=== PATIENT | male | born 1965 | race Caucasian/White ===

== ENCOUNTER 2024-10-16 17:09 | Inpatient (IN) | payer BC, OTHER ==
[2024-10-16] MEDS: Ketorolac 30 MG/ML SDV IVPUSH ONE (18:01)
[2024-10-16 18:03] LABS: BASOPHILS ABSOLUTE AUTO 0.01 K/uL (0.00-0.20); BASOPHILS PERCENT AUTO 0.1 % (0.0-1.0); EOSINOPHILS ABSOLUTE AUTO 0.00 K/uL (0.00-0.45); EOSINOPHILS PERCENT AUTO 0.0 % (0.0-6.0); IMMATURE GRAN ABSOLUTE AUTO 0.08 K/uL (0.00-0.05); IMMATURE GRAN PERCENT AUTO 0.5 % (0.0-0.4); LYMPHOCYTES ABSOLUTE AUTO 0.84 K/uL (1.00-4.80); LYMPHOCYTES PERCENT AUTO 5.8 % (24.0-44.0); MEAN PLATELET VOLUME 9.5 fL (9.4-12.4); MONOCYTES ABSOLUTE AUTO 1.37 K/uL (0.00-0.80); MONOCYTES PERCENT AUTO 9.4 % (0.0-8.0); NEUTROPHILS ABSOLUTE AUTO 12.28 K/uL (1.80-7.70); NEUTROPHILS PERCENT AUTO 84.2 % (41.0-71.0); NRBC ABSOLUTE 0.00 K/uL (0.00-0.02); NRBC PERCENT 0.0 /100WBC (0.0-0.2); PLATELET COUNT,PLT 175 K/uL (150-400); RED BLOOD CELL COUNT 4.00 M/uL (4.52-5.90); WHITE BLOOD CELL COUNT,WBC 14.58 K/uL (3.9-11.3)
[2024-10-16 18:30] LABS: A/G RATIO 0.6 (0.9-1.6); ALANINE AMINOTRANSFERASE,ALT 81.0 IU/L (14-63); ASPARTATE AMNIOTRANSFERASE,AST 60.0 IU/L (15-37); BILIRUBIN TOTAL 0.5 mg/dL (0.2-1.0); BLOOD UREA NITROGEN,BUN 18.0 mg/dL (7.0-18.0); CARBON DIOXIDE,CO2 23.4 mmol/L (21.0-32.0); CHLORIDE,CL 96.0 mmol/L (98-107); CREATININE 1.4 mg/dL (0.8-1.3); EST CRCL DRUG DOSING (CG) 61.26 mL/min; GLUCOSE RANDOM 117.0 mg/dL (74-106); POTASSIUM,K 3.6 mmol/L (3.5-5.1); PROTEIN TOTAL,TP 7.7 g/dL (6.4-8.2); SODIUM,NA 133.0 mmol/L (136-148)
[2024-10-16 18:31] LABS: ESTIMATED GFR 58.0 mL/min (>60)
[2024-10-16 18:33] LABS: LACTIC ACID 2.1 mmol/L (0.4-2.0)
[2024-10-16] MEDS: Water For Injection, Sterile 20 ML ONE (18:33)
[2024-10-16] MEDS: Iopamidol 755 Mg/ML 100 ML Bottle IVPUSH ONE (19:34)
[2024-10-16] MEDS: cefTRIAXone 2 GM in Water For Injection, Sterile 20 ML IVPUSH ONE (21:15)
[2024-10-16] MEDS: Morphine 15 MG Tab.ER PO ONE (22:45)
[2024-10-17] MEDS ORDERED: Sodium Chloride 0.9% 10 ML Syringe FLUSH PRN (01:26)
[2024-10-17] MEDS ORDERED: Ondansetron 4 MG/2 ML SDV IVPUSH PRN (01:26)
[2024-10-17] MEDS ORDERED: Sodium Chloride 0.9% 2.5 ML Syringe FLUSH PRN (01:26)
[2024-10-17 02:31] LABS: APPEARANCE,URINE CLEAR; GLUCOSE,URINE NEGATIVE (NEGATIVE); OCCULT BLOOD,URINE LARGE (NEGATIVE)
[2024-10-17 02:42] LABS: EPITHELIAL CELLS,URINE FEW (NONE-FEW)
[2024-10-17] MEDS: Acetaminophen/oxyCODONE 325-5 MG Tab PO PRN (03:42)
[2024-10-17 06:03] LABS: MEAN PLATELET VOLUME 9.9 fL (9.4-12.4); NRBC ABSOLUTE 0.00 K/uL (0.00-0.02); NRBC PERCENT 0.0 /100WBC (0.0-0.2); PLATELET COUNT,PLT 152 K/uL (150-400); RED BLOOD CELL COUNT 3.48 M/uL (4.52-5.90); WHITE BLOOD CELL COUNT,WBC 9.47 K/uL (3.9-11.3)
[2024-10-17 06:26] LABS: BLOOD UREA NITROGEN,BUN 17.0 mg/dL (7.0-18.0); CARBON DIOXIDE,CO2 24.4 mmol/L (21.0-32.0); CHLORIDE,CL 98.0 mmol/L (98-107); CREATININE 1.2 mg/dL (0.8-1.3); EST CRCL DRUG DOSING (CG) 71.47 mL/min; GLUCOSE RANDOM 99.0 mg/dL (74-106); POTASSIUM,K 3.6 mmol/L (3.5-5.1); SODIUM,NA 133.0 mmol/L (136-148)
[2024-10-17 06:31] LABS: ESTIMATED GFR 70.0 mL/min (>60)
[2024-10-17 07:00] LABS: BAND ABSOLUTE MAN 1.33; BAND PERCENT MAN 14 %; LYMPHOCYTES ABSOLUTE MAN 0.85 K/uL (1.00-4.80); LYMPHOCYTES PERCENT MAN 9 % (24-44); METAMYELOCYTE ABSOLUTE MAN 0.09; METAMYELOCYTE PERCENT MAN 1 %; MONOCYTES ABSOLUTE MAN 0.47 K/uL (0.00-0.80); MONOCYTES PERCENT MAN 5 % (0-8); SEG NEUTROPHILS ABSOLUTE MAN 6.72 K/uL (1.80-7.70); SEG NEUTROPHILS PERCENT MAN 71 % (41-71)
[2024-10-17] MEDS: Morphine 15 MG Tab.ER PO SCH (21:02)
[2024-10-17] MEDS: cefTRIAXone 2 GM in Water For Injection, Sterile 20 ML IVPUSH SCH (21:06)
[2024-10-18 09:16] LABS: BASOPHILS ABSOLUTE AUTO 0.01 K/uL (0.00-0.20); BASOPHILS PERCENT AUTO 0.1 % (0.0-1.0); EOSINOPHILS ABSOLUTE AUTO 0.02 K/uL (0.00-0.45); EOSINOPHILS PERCENT AUTO 0.3 % (0.0-6.0); IMMATURE GRAN ABSOLUTE AUTO 0.03 K/uL (0.00-0.05); IMMATURE GRAN PERCENT AUTO 0.4 % (0.0-0.4); LYMPHOCYTES ABSOLUTE AUTO 1.21 K/uL (1.00-4.80); LYMPHOCYTES PERCENT AUTO 17.3 % (24.0-44.0); MEAN PLATELET VOLUME 9.9 fL (9.4-12.4); MONOCYTES ABSOLUTE AUTO 0.40 K/uL (0.00-0.80); MONOCYTES PERCENT AUTO 5.7 % (0.0-8.0); NEUTROPHILS ABSOLUTE AUTO 5.34 K/uL (1.80-7.70); NEUTROPHILS PERCENT AUTO 76.2 % (41.0-71.0); NRBC ABSOLUTE 0.00 K/uL (0.00-0.02); NRBC PERCENT 0.0 /100WBC (0.0-0.2); PLATELET COUNT,PLT 149 K/uL (150-400); RED BLOOD CELL COUNT 3.29 M/uL (4.52-5.90); WHITE BLOOD CELL COUNT,WBC 7.01 K/uL (3.9-11.3)
[2024-10-18 09:42] LABS: BLOOD UREA NITROGEN,BUN 12.0 mg/dL (7.0-18.0); CARBON DIOXIDE,CO2 23.7 mmol/L (21.0-32.0); CHLORIDE,CL 99.0 mmol/L (98-107); CREATININE 1.1 mg/dL (0.8-1.3); EST CRCL DRUG DOSING (CG) 77.96 mL/min; ESTIMATED GFR 78.0 mL/min (>60); GLUCOSE RANDOM 112.0 mg/dL (74-106); POTASSIUM,K 3.0 mmol/L (3.5-5.1); SODIUM,NA 133.0 mmol/L (136-148)
[2024-10-18] MEDS: Potassium Chloride 20 MEQ Tab.ER PO ONE (14:53)
[2024-10-19 06:35] LABS: MEAN PLATELET VOLUME 10.4 fL (9.4-12.4); NRBC ABSOLUTE 0.00 K/uL (0.00-0.02); NRBC PERCENT 0.0 /100WBC (0.0-0.2); PLATELET COUNT,PLT 163 K/uL (150-400); RED BLOOD CELL COUNT 3.22 M/uL (4.52-5.90); WHITE BLOOD CELL COUNT,WBC 6.79 K/uL (3.9-11.3)
[2024-10-19 06:54] LABS: BLOOD UREA NITROGEN,BUN 9.0 mg/dL (7.0-18.0); CARBON DIOXIDE,CO2 21.8 mmol/L (21.0-32.0); CHLORIDE,CL 98.0 mmol/L (98-107); CREATININE 0.9 mg/dL (0.8-1.3); EST CRCL DRUG DOSING (CG) 95.29 mL/min; GLUCOSE RANDOM 92.0 mg/dL (74-106); POTASSIUM,K 3.3 mmol/L (3.5-5.1); SODIUM,NA 131.0 mmol/L (136-148)
[2024-10-19 07:01] LABS: ESTIMATED GFR 99.0 mL/min (>60)
[2024-10-19 07:10] LABS: BAND ABSOLUTE MAN 0.54; BAND PERCENT MAN 8 %; EOSINOPHILS ABSOLUTE MAN 0.07 K/uL (0.00-0.45); EOSINOPHILS PERCENT MAN 1 % (0-6); LYMPHOCYTES ABSOLUTE MAN 1.29 K/uL (1.00-4.80); LYMPHOCYTES PERCENT MAN 19 % (24-44); MONOCYTES ABSOLUTE MAN 0.41 K/uL (0.00-0.80); MONOCYTES PERCENT MAN 6 % (0-8)
[2024-10-19 07:11] LABS: SEG NEUTROPHILS ABSOLUTE MAN 4.48 K/uL (1.80-7.70); SEG NEUTROPHILS PERCENT MAN 66 % (41-71)
[2024-10-19] MEDS: Potassium Chloride 20 MEQ Tab.ER PO ONE (13:49)
== END 2024-10-19 14:02 | disposition home or self-care (01) | DRG 194 ==
LOC: MW.ED 17:09 → MW.MS 21:09 → MERGE 21:09
PROVIDERS: ADMIT Internal Medicine; ATTEND Internal Medicine
DX: J18.9 Pneumonia, unspecified organism (principal); E87.1 Hypo-osmolality and hyponatremia; Z66 Do not resuscitate; F17.210 Nicotine dependence, cigarettes, uncomplicated; C62.90 Malignant neoplasm of unspecified testis, unspecified whether descended or undescended; R91.1 Solitary pulmonary nodule; E78.00 Pure hypercholesterolemia, unspecified; M54.16 Radiculopathy, lumbar region; G62.9 Polyneuropathy, unspecified; J45.909 Unspecified asthma, uncomplicated; G89.29 Other chronic pain; Z98.890 Other specified postprocedural states; Z88.8 Allergy status to other drugs, medicaments and biological substances; Z79.51 Long term (current) use of inhaled steroids; Z79.899 Other long term (current) drug therapy
CPT/HCPCS: 36415; 71045; 71045-26; 71275; 71275-26; 74177; 74177-26; 80048; 80053; 81001; 83605; 83690; 83735; 84484; 85025; 87040; 87086; 87426-QW; 99222; 99231; 99238; A9270-GY; J0456; J0696; J1885; J7030; J7050; Q9967